=== PATIENT | male | born 1940 | race Caucasian/White ===

== ENCOUNTER 2017-04-12 11:37 | Inpatient (IN) | payer MEDICARE, MEDICAID ==
[~2017-04-12] VITALS: Ht 167.6 cm; Wt 68.0 kg
[2017-04-12 15:51] VITALS: BP 127/68
[2017-04-12 16:00] VITALS: BP 109/71
--- NOTE | 2017-04-12 16:15 | NUR ---
MS/RN NEW ADMISSION 76 YR OLD MALE PATIENT RECEIVED FROM ER FOR DX OF RESPIRATORY DISTRESS. PATIENT A/O X1 WITH CONFUSION. RESPIRATION REGULAR AND UNLABORED. DENIES SOB. O2 SAT IN ROOM AIR AT 96%. PATIENT FULLY ADMITTED, PICTURES TAKEN. UPON ARRIVAL TO FLOOR NO MEDICATION LIST PROVIDED BY THE [facility]. AWAITING ADMITTING ORDERS FROM DR ARAUJO. SIDE RAILS UP X3, BED ALARM ON, CALL LIGHT WITHIN REACH.
[2017-04-12] MEDS ORDERED: Z GUARD REMEDY 2 OZ OINT TP PRN (16:30)
[2017-04-12] MEDS ORDERED: IPRA0.2S49 IH (16:41)
[2017-04-12] MEDS ORDERED: CARB-93 PO (16:41)
[2017-04-12] MEDS ORDERED: PRED20TA PO (16:41)
[2017-04-12] MEDS ORDERED: LORA1TAB PO (16:41)
[2017-04-12] MEDS ORDERED: TRAZ-144 PO (16:41)
[2017-04-12] MEDS ORDERED: LEVA0.6320 IH (16:41)
[2017-04-12] MEDS ORDERED: AMLO5TAB2 PO (16:41)
[2017-04-12] MEDS ORDERED: MIRT15TA7 PO (16:41)
--- NOTE | 2017-04-12 18:11 | NUR ---
MS/RN End note No changes in care at this time, continue to awaiting admitting orders. Medication reconciliation completed and entered into the computer. Will continue to monitor and endorse to night coordinator.
--- NOTE | 2017-04-12 19:46 | NUR ---
MS RN OPENING NOTES PATIENT RECEIVED IN BED, WITH EYES CLOSED, EASY TO BE AWAKE, A & O X 1. NO S/S ON PAIN, NO SOB, NO SYMPTOMS OF ACUTE DISTRESS NOTED. SATING @ 96 % @ RA. IN SEMI [place] POSITION. SEEMS TO BE COMFORTABLE @ THIS TIME. NO IV ACCESS @ THIS TIME. BED BOUND. SAFETY MEASURES IN PLACE. BED ALARM ON & IN LOW, LOCKED POSITION. CALL LIGHT WITHIN REACH. WILL MONITOR CLOSELY.
[2017-04-12 20:00] VITALS: BP 102/56
[2017-04-12 21:11] VITALS: BP 102/56
--- NOTE | 2017-04-13 06:47 | NUR ---
MS RN CLOSING NOTES PT SLEPT INTERMITTENTLY @ NIGHT. NO S/S OF PAIN, NO SOB OR CP NOTED. BED BOUND, INCONTINENT. ALL NEEDS MET. NO IV ACCESS. ON PUREE DIET. RESP REMAINED EVEN & UNLABORED @ RA. SAFETY MEASURES IN PLACE. BED ALARM ON & IN LOW LOCKED POSITION. CALL LIGHT WITHIN REACH. WILL ENDORSE TO AM RN FOR CONTINUITY OF CARE.
--- NOTE | 2017-04-13 07:46 | NUR ---
MS RN OPENING NOTES RECEIVED PATIENT IN NO APPARENT DISTRESS. PATIENT IS ALERT AND RESTING IN BED. BEDSIDE RAILS ARE UP X2. BED IS LOCKED AND LOWERED. WILL CONTINUE TO MONITOR. CALL LIGHT IS WITHIN REACH.
[2017-04-13 08:00] VITALS: BP 106/57
--- NOTE | 2017-04-13 11:27 | NUR ---
WOUND CARE CONSULT; PT PRESENTS EXTREMELY THIN AND BONY WITH RIBS PROTRUDING AND LEFT ANKLE INTACT DEEP TISSUE INJURY, PRESENT ON ADMISSION. SACRUM AND LOW BACK HAVE SCARS WITH VERY BONY AREAS. RECOMMENDATIONS MADE FOR SKIN PROTECTION. DISCUSSED WITH NURSING STAFF. PT ON EVELYN ISOFLEX LOW AIRLOSS BED. WILL SEE PRN. GATES IN AGREEMENT WITH PLAN OF CARE. CURRENT JEFF SCORE IS 10. Addendum: 04/13/17 at 1133 by RHIANNA EVERETT WNDNU Amended: Links added.
[2017-04-13] MEDS ORDERED: LORAZEPAM 1 MG TABLET PO PRN (12:00)
[2017-04-13] MEDS ORDERED: LEVALBUTEROL HCL NEB 1.25 MG/0.5 ML VIAL.NEB IH SCH ×2 (13:30→15:30)
[2017-04-13] MEDS: CARBIDOPA/LEVODOPA 25/100 MG 1 UDTAB PO SCH ×2 (13:58→16:34)
[2017-04-13] MEDS: ALBUTEROL HALF STRENGTH 1.25 MG/3 ML VIAL.NEB NEB SCH ×3 (14:56→23:28)
[2017-04-13] MEDS: IPRATROPIUM NEB FS 0.5 MG/2.5 ML AMPUL.NEB IH SCH ×3 (14:57→23:28)
--- NOTE | 2017-04-13 18:57 | NUR ---
MS RN CLOSING NOTES PATIENT IS IN STABLE CONDITION. IN NO APPARENT DISTRESS. BEDSIDE RAILS ARE UP X2. CALL LIGHT IS WITHIN REACH. BED IS LOCKED AND LOWERED. WILL ENDORSE CARE TO ESTIMATOR PRINTING PLATE MAKING NURSE FOR GILBERTO.
--- NOTE | 2017-04-13 19:40 | NUR ---
MS RN INITIAL NOTES RECEIVED PT IN BED AWAKE,ON ROOM AIR,NO SOB,NO APPARENT DISTRESS NOTED.NO S/SX OF PAIN OR DISCOMFORT NOTED. KEPT CLEAN AND COMFORTABLE,ATTENDED ALL NEEDS.WILL CONTINUE TO MONITOR ACCORDINGLY.
[2017-04-13 20:00] VITALS: BP 110/68
[2017-04-13] MEDS: MIRTAZAPINE 15 MG TABLET PO SCH (21:11)
[2017-04-13] MEDS: TRAZODONE 50 MG TABLET PO SCH (22:23)
[2017-04-14] MEDS: ALBUTEROL HALF STRENGTH 1.25 MG/3 ML VIAL.NEB NEB SCH ×5 (03:30→20:24)
[2017-04-14] MEDS: IPRATROPIUM NEB FS 0.5 MG/2.5 ML AMPUL.NEB IH SCH ×5 (04:04→20:24)
--- NOTE | 2017-04-14 06:20 | NUR ---
MS RN CLOSING NOTES PT IN BED ASLEEP, RESPIRATIONS EVEN,UNLABORED,NO SOB NOTED. NO S/SX OF PAIN OR DISCOMFORT NOTED AT THIS TIME. KEPT CLEAN AND COMFORTABLE.ATTENDED ALL NEEDS. CALL LIGHT WITHIN REACH. WILL CONTINUE TO MONITOR.
--- NOTE | 2017-04-14 07:34 | NUR ---
MS RN OPENING NOTES RECEIVED PATIENT IN STABLE CONDITION. IN NO APPARENT DISTRESS. PATIENT IS RESTING IN BED. BEDSIDE RAILS ARE UP X2. BED IS LOCKED AND LOWERED. CALL LIGHT IS WITHIN REACH. WILL CONTINUE TO MONITOR.
[2017-04-14 08:00] VITALS: BP 110/70
[2017-04-14] MEDS: CARBIDOPA/LEVODOPA 25/100 MG 1 UDTAB PO SCH ×3 (08:33→16:15)
[2017-04-14] MEDS: predniSONE 20 MG TABLET PO SCH (08:34)
[2017-04-14] MEDS: AMLODIPINE BESYLATE 5 MG TABLET PO SCH (08:34)
[2017-04-14 11:34] LABS: CHOLESTEROL 204 mg/dL (<200); HDL CHOLESTEROL 62 mg/dL (40-60); LDL 112 mg/dL (0-99); TRIGLYCERIDES 156 mg/dL (30-150)
[2017-04-14 16:00] VITALS: BP 95/53
--- NOTE | 2017-04-14 18:59 | NUR ---
MS RN CLOSING NOTES PATIENT IS NO APPARENT DISTRESS. PATIENT IS ALERT AND RESTING IN BED. CALL LIGHT IS WITHIN REACH. BEDSIDE RAILS ARE UP X2. BED IS LOCKED AND LOWERED. ALL NEEDS WERE MET. WILL ENDORSE CARE TO WHITE LEAD GRINDER NURSE FOR GILBERTO.
--- NOTE | 2017-04-14 19:29 | NUR ---
MS RN INITIAL NOTES RECEIVED PT IN BED,ALERT,AWAKE,VERBALLY RESPONSIVE,ON ROOM AIR,NO SOB,NO APPARENT DISTRESS NOTED.DENIES ANY PAIN OR DISCOMFORT AT THIS TIME.KEPT CLEAN AND COMFORTABLE,CALL LIGHT WITHIN REACH.WILL CONTINUE TO MONITOR ACCORDINGLY
[2017-04-14 20:00] VITALS: BP 102/60
--- NOTE | 2017-04-14 20:15 | NUR ---
MS RN NOTES URINE COLLECTED FOR URINALYSIS AND CULTURE VIA CLEAN CATCH PROPER PERICARE RENDERED. PT REFUSED STRAIGHT CATHETER TO BE INSERTED,OFFERED X3, EXPLAINED BENEFITS,REFUSED.ATTENDED ALL NEEDS.
[2017-04-14] MEDS: MIRTAZAPINE 15 MG TABLET PO SCH (21:06)
[2017-04-14] MEDS: TRAZODONE 50 MG TABLET PO SCH (21:06)
[2017-04-14 21:29] VITALS: BP 102/60
[2017-04-15] MEDS: IPRATROPIUM NEB FS 0.5 MG/2.5 ML AMPUL.NEB IH SCH ×4 (00:28→19:30)
[2017-04-15] MEDS: ALBUTEROL HALF STRENGTH 1.25 MG/3 ML VIAL.NEB NEB SCH ×6 (00:29→19:30)
[2017-04-15 05:25] LABS: APPEARANCE,URINE CLEAR (CLEAR); BILIRUBIN,URINE 1+ (NEGATIVE); BLOOD, URINE NEGATIVE Ery/uL (NEGATIVE); COLOR,URINE DARK YELLO (YELLOW); KETONES,URINE NEGATIVE (NEGATIVE); LEUKOCYTE ESTERASE ,URINE NEGATIVE (NEGATIVE); NITRITE, URINE NEGATIVE (NEGATIVE); PH,URINE 5.5 (5.0-8.0); PROTEIN,URINE NEGATIVE (NEGATIVE); UGLUCOSE NEGATIVE (NEGATIVE); UROBILINOGEN,URINE 0.2 EU/dL (0.2)
[2017-04-15 05:40] LABS: BACTERIA,URINE None seen /HPF (None Seen); RBC,URINE 0-2 /HPF (0-2); WBC,URINE 0-2 /HPF (0-3)
[2017-04-15 05:41] LABS: SQUAMOUS EPITHELIAL CELL,UR Few /HPF (None Seen); YEAST,URINE Few /HPF (None Seen)
--- NOTE | 2017-04-15 06:34 | NUR ---
MS RN CLOSING NOTES PT IN BED ASLEEP,ON ROOM AIR,NO SOB,NOTED,RESPIRATIONS EVEN,UNLABORED. NO S/SX OF PAIN OR DISCOMFORT NOTED. KEPT CLEAN AND COMFORTABLE,ATTENDED ALL NEEDS. WILL CONTINUE TO MONITOR
--- NOTE | 2017-04-15 07:10 | NUR ---
RN OPEN NOTES RECEIVED REPORT FROM GEOMETRY PROFESSOR NURSE. PATIENT IS IN BED WITH HIS EYES CLOSED, EASILY AROUSED TO CALLING HIS NAME. NO SIGNS AND SYMPTOMS OF DISTRESS. WILL CONTINUE TO MONITOR AND ASSESS PATIENT.
[2017-04-15 07:29] LABS: BASOPHILS % (AUTO) 0.4 % (0.0-2.0); EOSINOPHILS % (AUTO) 0.4 % (0.0-6.0); HEMATOCRIT 34 % (39-51); HEMOGLOBIN 11.4 g/dL (13.5-17.5); LYMPHOCYTES # (AUTO) 0.7 /CMM (0.8-4.8); LYMPHOCYTES % (AUTO) 7.6 % (20.0-44.0); MEAN CORPUSCULAR HEMOGLOBIN 31 PG (26.0-33.0); MEAN CORPUSCULAR HGB CONC 34 g/dl (31.0-36.0); MEAN CORPUSCULAR VOLUME 91 fL (80-96); MONOCYTES # (AUTO) 0.8 /CMM (0.1-1.30); MONOCYTES % (AUTO) 8.3 % (2.0-12.0); NEUTROPHILS # (AUTO) 7.8 /CMM (1.8-8.9); NEUTROPHILS % (AUTO) 83.3 % (43.0-81.0); PLATELET COUNT (AUTO) 285 /CMM (150-450); RDW COEFFICIENT OF VARIATION 15.1 (11.5-15.0); RED BLOOD CELL COUNT(AUTO) 3.72 MIL/uL (4.5-6.0); WHITE BLOOD COUNT (AUTO) 9.3 K/uL (4.3-11.0)
[2017-04-15 07:41] LABS: ALANINE AMINOTRANSFERASE 10 U/L (12-78); ALBUMIN 2.2 g/dL (3.4-5.0); ALKALINE PHOSPHATASE 64 U/L (46-116); ASPARTATE AMINOTRANSFERASE 14 U/L (15-37); BILIRUBIN,TOTAL 0.4 mg/dL (0.2-1.0); CALCIUM, SERUM 8.4 mg/dL (8.5-10.1); CARBON DIOXIDE 30 mmol/L (21-32); CHLORIDE 105 mmol/L (98-107); CREATININE 1.1 mg/dL (0.6-1.3); GLUCOSE 90 mg/dL (74-106); MAGNESIUM 2.2 mg/dL (1.8-2.4); PHOSPHORUS 3.3 mg/dL (2.5-4.9); POTASSIUM 4.2 mmol/L (3.5-5.1); SODIUM SERUM 141 mmol/L (136-145); TOTAL PROTEIN, SERUM 5.5 g/dL (6.4-8.2); UREA NITROGEN, BLOOD 38 mg/dL (7-18)
[2017-04-15 08:00] VITALS: BP 106/46
[2017-04-15] MEDS: AMLODIPINE BESYLATE 5 MG TABLET PO SCH (08:27)
[2017-04-15] MEDS: CARBIDOPA/LEVODOPA 25/100 MG 1 UDTAB PO SCH ×3 (08:27→17:09)
[2017-04-15] MEDS: predniSONE 20 MG TABLET PO SCH (08:27)
[2017-04-15 16:00] VITALS: BP 114/65
--- NOTE | 2017-04-15 16:51 | NUR ---
REPORT GAVE TO TERI FROM [facility]. ROOM NUMBER IS NOT YET [id number]
--- NOTE | 2017-04-15 18:48 | NUR ---
RN CLOSING NOTES PATIENT IS IN BED. PATIENT IS ALERT AND ORIENTED TO NAME ONLY. PERIOD OF CONFUSIONS. UNABLE TO VERBALIZE UNDERSTANDING. NO IV SITE. BED IN LOW POSITION, LOCKED AND TWO SIDE RAILS ARE UP. CALL LIGHT WITHIN REACH. ALL NURSING CARE ANTICIPATED AND ATTENDED FOR. PATIENT TURNED AND REPOSITIONED Q2HR PER HOSPITAL PROTOCOL. PATIENT KEPT CLEAN AND DRY. WILL ENDORSE TO MANUFACTURING SCHEDULER NURSE
[2017-04-15 20:00] VITALS: BP 110/66
[2017-04-15 21:40] VITALS: BP 107/58
--- NOTE | 2017-04-15 21:40 | NUR ---
Pt. ambulance arrived at the M3 floor, pt. get ready to be discharged to [facility], pt. made aware about [facility], prepared pt. in bed and changed new diaper, gave report to the ambulance personnel, gave the discharge papers properly signed by Nurses and pt. is unable to sign due to Parkinson's Disease, ambulance personnel signed it for the pt., pt. 's v/s checked @ around 2140 PM with results: BP = 107/58, RR= 14-17, HR = 88, 02 sat. @ 97 % in Room Air. Pt. denies pain and no s/s of RR distress, no s/s of sob, no s/s of pain or discomfort. Pt.'s hands have tremors when he moves it due to Parkinson's Disease, Pt. eager to go back to [facility] and discharged around this time with his belongings accompanied by two 2 ambulance personnel to be transported back to [facility].
== END 2017-04-15 21:40 | DRG 917 ==
LOC: ER 11:38 → MED 13:03 → EDBD 13:03 → MED 13:32
DX: T59.811A Toxic effect of smoke, accidental (unintentional), initial encounter (principal); J96.01 Acute respiratory failure with hypoxia; G93.41 Metabolic encephalopathy; E44.0 Moderate protein-calorie malnutrition; G20 Parkinson's disease; F02.80 Dementia in other diseases classified elsewhere, unspecified severity, without behavioral disturbance, psychotic disturbance, mood disturbance, and anxiety; J44.9 Chronic obstructive pulmonary disease, unspecified; J70.5 Respiratory conditions due to smoke inhalation; Y92.129 Unspecified place in nursing home as the place of occurrence of the external cause; K59.00 Constipation, unspecified; Z88.5 Allergy status to narcotic agent; Z88.0 Allergy status to penicillin; Z79.899 Other long term (current) drug therapy; F41.9 Anxiety disorder, unspecified; F32.9 Major depressive disorder, single episode, unspecified; E78.5 Hyperlipidemia, unspecified; I10 Essential (primary) hypertension; D63.8 Anemia in other chronic diseases classified elsewhere
CPT/HCPCS: 36415; 80053-TC; 80061-TC; 81000-TC; 83735-TC; 84100-TC; 84443-TC; 85025-TC; 87081-TC; 87086-TC; A4606; Z7610